=== PATIENT | female | born 1980 | race African-American/Black ===

== ENCOUNTER 2019-12-13 16:09 | Emergency (ER) | payer MEDICARE, OTHER ==
[~2019-12-13] VITALS: Ht 180.3 cm; Wt 159.1 kg
[~2019-12-13 16:09] MED LIST: BENICAR20 MG PO; LISINOPRIL-HCT1 EAC8 PO; MINOCIN100 MG PO; SEROQUEL25 MG PO
[2019-12-13 16:12] VITALS: BP 198/116; Ht 180.3 cm; Wt 159.1 kg
== END 2019-12-13 18:52 | disposition left against medical advice (07) ==
LOC: D.ER 16:09
DX: I10 Essential (primary) hypertension (principal)

== ENCOUNTER 2019-12-16 05:20 | Day surgery (SDC) | payer MEDICARE, OTHER ==
[2019-12-13 16:11] LABS: BASOPHILS 0.2 % (0-2); EOSINOPHILS 0.5 % (0-7); HEMATOCRIT 36.4 % (36.0-48.0); HEMOGLOBIN 11.6 g/dL (12-16); IMMATURE GRANULOCYTES 0.3 % (0-5); MCH 28.8 pg (26.0-34.0); MCHC 31.9 g/dL (31.0-37.0); MCV 90.3 fL (80.0-100.0); MEAN PLATELET VOLUME 9.9 fL (7.4-10.4); MONOCYTES 4.1 % (2-11); NEUTROPHILS 75.9 % (40-80); PLATELET COUNT 426 10x3/uL (130-400); RBC 4.03 10x6/uL (4.00-5.40); RDW 13.3 % (11.5-14.5)
[~2019-12-16] VITALS: Ht 180.3 cm; Wt 158.3 kg
--- NOTE | ~2019-12-16 | OP ---
PATIENT NAME: RADHA VASQUEZ MEDICAL RECORD: [id number] :76 LOCATION:D.OPS ADMISSION DATE: SURGEON: YESSI TOMLINSON DO DATE OF OPERATION: 12/16/2019 PREOPERATIVE DIAGNOSIS: Abnormal uterine bleeding, polyp. POSTOPERATIVE DIAGNOSIS: Abnormal uterine bleeding, polyp. PRIMARY SURGEON: Yessi Tomlinson DO TREE TRIMMER HELPER SURGEON: None. ANESTHESIA: General ET tube. PROCEDURE: Hysteroscopy, polypectomy, and D&C. FINDINGS: Uterus sounded to 9 cm. Two large polyps protruding through the cervical os, polypoid tissue and hysteroscopy. SPECIMENS: 1. Polyps. 2. Endometrial curetting. ESTIMATED BLOOD LOSS: Less than 20 cc. IV FLUIDS: Per anesthesia record. INFECTION PROPHYLAXIS: Betadine vaginal prep. Deep venous thrombosis prophylaxis, SCDs in place. COMPLICATIONS: None. The patient was seen prior to the operating room and risks and benefits of the procedure reviewed and consent signed. All questions answered. DESCRIPTION OF PROCEDURE: The patient was taken to the operating room where anesthesia was administered and found to be adequate. She was prepped and draped in normal sterile fashion and placed in dorsal lithotomy position with [place] stirrups. [place] speculum was placed inside the vagina. Two large polyps seen protruding through the os. A 12-degree scope was then used to look within the uterus to see stalks of polyps. Stalks were not too wide, so decision made to remove the polyps. Ring forceps utilized to grasp the polyp and twisted in a clockwise fashion until the polyp detached from both polyps. Through this D&C was done with more tissue taken with a small sharp curette. A little bit irregularity noted throughout the cavity on D&C and some bleeding noted at the cervix. Silver nitrate used to stop bleeding. Hemostasis was adequate. All instruments were then removed. A tenaculum had been placed with speculum on an anterior cervix, then removed at end of case, hemostasis adequate. All instruments were removed. All lap, sponge, needle counts were correct. The patient was awakened and taken to recovery room in stable condition. TRANSINT:[id number] Voice Confirmation ID: [id number] DOCUMENT ID: [id number] OPERATIVE REPORT [id number] RADHA VASQUEZ YESSI TOMLINSON DO CC: [id number] DICTATION DATE: 12/16/19 0933 OUTPATIENT RECEPTIONIST: 12/16/19 1146 [facility] [place] 12/16/19 [facility] [address] [facility]
[2019-12-16 05:43] VITALS: BP 192/112; Ht 180.3 cm; Wt 158.3 kg
[2019-12-16 05:55] LABS: HCG URINE NEGATIVE (NEGATIVE)
--- NOTE | 2019-12-16 09:58 | NUR ---
0944 IV DC'D. CATHETER TIP INTACT. NO BLEEDING AT SITE. COBAN WRAPPED ON SITE. 6404 DR ARENAS AT BEDSIDE COMMUNICATING WITH PATIENT AND HER MOTHER ON FINDINGS AND POST OP INSTRUCTIONS. DISCHARGE INSTRUCTIONS COVERED WITH PATIENT AND HER MOTHER EARLIER AND THEY VOICE UNDERSTANDING OF INSTRUCTIONS.
== END 2019-12-16 10:02 | disposition home or self-care (01) ==
LOC: D.OPS 05:20
PROVIDERS: ATTEND Obstetrics & Gynecology
DX: N93.9 Abnormal uterine and vaginal bleeding, unspecified (principal); N84.0 Polyp of corpus uteri